=== PATIENT | male | born 1950 | race Caucasian/White ===

== ENCOUNTER 2017-09-22 12:08 | Inpatient (IN) | payer MEDICARE ==
[~2017-09-22] VITALS: Ht 172.7 cm; Wt 96.2 kg
--- NOTE | ~2017-09-22 | PR ---
[place], [place] PROGRESS NOTE [id number] UNIT #: [id number] ROOM: 508 DOCTOR: JACKY JUAREZ MD,RONAK BIRTHDATE: [birth year] DOS: 09/24/2017 SUBJECTIVE: The patient was noted comfortable at this time with reduction of symptoms of shortness of breath and cough was noted. Denies symptoms of chest pain or abdominal pain. Denies symptoms of nausea, vomiting, or diarrhea. The patient was noted mostly in his room and ambulating in his room with the oxygen. OBJECTIVE: VITAL SIGNS: For the patient which has been recorded shows a normal temperature, respiratory rate 20, heart rate 84, blood pressure 152/80. The pulse oxygen saturation of the patient noted as 94% saturation on 4-6 L nasal cannula. HEENT: Moderate obesity. NECK: Supple. CARDIOVASCULAR: S1, S2 audible. LUNGS: The patient was noted without any crackles. Moderate decreased breath sounds with expiratory wheezing decreased from previous examinations. ABDOMEN: Soft and nontender. EXTREMITIES: Without any edema. LABORATORY DATA: The patient's chest x-ray shows changes of COPD without any acute pulmonary infiltration. Arterial blood gas on 4.5 liter nasal cannula. PO2 was noted only 66. IMPRESSION: Acute severe hypoxic respiratory failure result of acute exacerbation of chronic obstructive pulmonary disease and acute bronchitis. PLAN OF MANAGEMENT: Ambulation with the oxygen. Continue current dose of steroids. Monitor the patient in the next 24 hours prior to consideration of possible. Discharge home depends on further improvement. RONAK RICO MD CM:PNTRANS [id number] RONAK JUAREZ MD 09/24/171945 interface
--- NOTE | ~2017-09-22 | CON ---
[place], [place] REPORT OF CONSULTATION NAME: EKATERINA CURRIE UNIT #: [id number] ROOM: 508 DOCTOR: STRA ARREDONDO DO BIRTHDATE: [birth year] DOS: 09/23/2017 CHIEF COMPLAINT: Shortness of breath, cough, fever. HISTORY OF PRESENT ILLNESS: This is a 67-year-old male who came to the ED from the PCP's office with a complaint of shortness of breath, productive cough, wheezing and fever that had begun 4 days prior. 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 Patient reports that he first noticed the symptoms afternoon around 2:00; he said he started feeling under the weather; by 5:00, he was severely short of breath with cough and fever and these symptoms have persisted over the weekend. Patient is a smoker, smokes 1 pack per day. Patient was admitted overnight and reports that he feels a mild improvement of his respiratory symptoms since admission. No new complaints were brought up at this time. PAST MEDICAL HISTORY: COPD, coronary artery disease with history of CABG x 3, Crohn's disease, hyperlipidemia, hypertension. PAST SURGICAL HISTORY: CABG, cholecystectomy, left rotator cuff repair. SOCIAL HISTORY: Tobacco abuse. Denies alcohol or illicit drug use. FAMILY HISTORY: Father at age 51 of CHF. Mother had breast cancer, at age 62. ALLERGIES: PENICILLINS AND IODINE. HOME MEDICATIONS: Aspirin, atorvastatin, Lopressor, and valsartan/hydrochlorothiazide combination pill. REVIEW OF SYSTEMS: GENERAL APPEARANCE: Patient reports fever and chills. Denies weight loss, weight gain. HEENT: Patient denies vision change, diplopia, nasal discharge or dysphagia. CARDIOVASCULAR: Denies chest pain, palpitations, edema. RESPIRATORY: Patient complains of shortness of breath, cough with sputum production and wheezing. Patient denies any hemoptysis. ABDOMEN: Patient denies abdominal pain, nausea, vomiting, diarrhea, constipation. EXTREMITIES: Patient denies erythema, edema. NEUROLOGIC: Patient denies headaches and lightheadedness. SKIN: Patient denies new rashes, new lesions. VITAL SIGNS: Temperature 98.0, pulse is 86, respirations 18, blood pressure 146/75, pulse ox is 90% on 4 liters nasal cannula. LABORATORY DATA: White count 8.3, hemoglobin 14.9, hematocrit 48.1, platelet count 177. Chemistries: Sodium 139, potassium 3.2, chloride 104, carbon dioxide 26, BUN 23, creatinine 1.4, glucose 266. A1c 7.5. Calcium 8.4, phosphorus 2.4, magnesium 1.9. Liver enzymes normal. Albumin 3.4. Vitamin D [place], [place] REPORT OF CONSULTATION NAME: EKATERINA CURRIE UNIT #: [id number] ROOM: 508 DOCTOR: STAR ARREDONDO DO BIRTHDATE: [birth year] 8.2, vitamin B12 758 and folate 5.92. TSH 0.275. Blood cultures remain negative. Flu swab was negative. Chest x-ray on the showed clear lungs. PHYSICAL EXAMINATION: GENERAL APPEARANCE: Patient is awake, alert and oriented x 3, in mild respiratory distress. HEENT: Eyes are clear, no injection. Nares are patent. Mucous membranes are moist. NECK: Supple, nontender. CARDIOVASCULAR: Regular rate and rhythm with no murmurs, gallops or rubs. PULMONARY: Expiratory wheezes and diffuse rhonchi in all lung freeman. No rales appreciated. ABDOMEN: Soft, nontender with positive bowel sounds. EXTREMITIES: Upper extremities and lower extremities are clear of edema, erythema, clubbing, or cyanosis. NEUROLOGIC: Negative for focal deficits. IMPRESSION: 1. Acute on chronic obstructive pulmonary disease exacerbation with hypoxia. 2. Acute bronchitis. 3. Tobacco abuse. 4. Diabetes type 2, new diagnosis. 5. Obesity. 6. Coronary artery disease with history of bypass. TREATMENT PLAN: Continue with LevaqAndriy peraza, Solu-Medrol; the steroid dose will be reduced from 80 b.i.d. to 40 b.i.d. Patient feels better and we will continue to follow with his current respiratory therapy plan. If patient continues to improve clinically, we will anticipate discharge in the next 24-48 hours. Patient is medically stable at this time. We will continue to follow. STAR ARREDONDO DO RONAK RICO MD CM:CONSTR:REPORT OF CONSULTATION 1259 09/23/17 2342 interface
--- NOTE | ~2017-09-22 | CON ---
[place], [place] REPORT OF CONSULTATION NAME: EKATERINA CURRIE UNIT #: [id number] ROOM: 508 DOCTOR: JACKY JUAREZ MDRONAK BIRTHDATE: [birth year] DOS: 09/23/2017 ADDENDUM PULMONARY CONSULTATION EVALUATION AND MANAGEMENT The patient was independently seen and examined with [id number] encounter, history was confirmed. Physical examination performed. All the labs were reviewed. Note done by the medical accounting clerk was approved as well in the beginning of consultation after the date of service add on. CONSULTATION REQUESTED BY: Hospitalist Service. REASON FOR CONSULTATION: To assess the patient for the assessment of acute exacerbation of COPD. HISTORY OF PRESENT ILLNESS: This is a 67-year-old white male patient who stated gotten acutely ill in the last few days. The symptoms started for this patient with acute coughing, which were noted progressive chest congestion and worsening. The symptoms were later associated with significant shortness of breath as well as wheezing. The patient denies symptoms of chest pain. He denies symptoms of hemoptysis. The patient has been admitted under the Hospitalist Service on 09/22/2017 for further medical management. He denies any symptoms of hemoptysis. The patient's symptoms have been noted partially decreased. The patient was assessed in the Emergency Room was also noted with acute hypoxic respiratory failure with pulse ox saturation 88%. The patient was also noted elevation in temperature 101 degrees Fahrenheit. The patient's assessment was completed by the medical accounting clerk. PAST MEDICAL HISTORY: 1. COPD. 2. Acute Crohn's disease. 3. Mixed hyperlipidemia. 4. Essential hypertension. PAST SURGICAL HISTORY: 1. Coronary artery bypass graft. 2. Cholecystectomy. 3. Repair of the left rotator cuff. SOCIAL HISTORY: The patient is an active smoker, started as a teenager, smoke 1 pack of cigarettes a day. and has 4 children. FAMILY HISTORY: Father , at the age of 5151 years old, complication of congestive heart failure. Mother at 62 years old due to complication of breast cancer. HOME MEDICATIONS: Noted as use of aspirin, Lipitor, metoprolol tartrate, valsartan with hydrochlorothiazide. [place], [place] REPORT OF CONSULTATION NAME: EKATERINA CURRIE UNIT #: [id number] ROOM: 508 DOCTOR: JACKY JUAREZ MD,RONAK BIRTHDATE: [birth year] DRUG ALLERGIES: REPORTED ALLERGY TO THE PENICILLINS AND IODINE. PHYSICAL EXAMINATION: GENERAL: A 67-year-old white male who has been currently admitted to the hospital noted awake and alert. VITAL SIGNS: Height of 5 feet 8 inches, weight of 212 pounds, BMI 32.2. Audible wheezing were noted with coughing, nonproductive. HEENT: Head was atraumatic. Eyes nonicterus. NECK: Supple. CARDIOVASCULAR: S1, S2 audible. LUNGS: The patient was noted with moderate decreased breath sounds in the lungs bilaterally with diffuse expiratory wheezing. There were no crackles. ABDOMEN: Soft, nontender, positive bowel sounds. EXTREMITIES: The patient was noted without any edema, clubbing, or cyanosis. SKIN: Visible skin, no lesions, rash. MUSCULOSKELETAL: Without any acute deformities. CENTRAL NERVOUS SYSTEM: Cranial nerves 2-12 intact. No focal deficit. LABORATORY DATA: The CMP on admission that was done yesterday, glucose 123, normal BUN and creatinine and other electrolytes. CBC of the patient done on 09/22/2017 was noted as normal CBC. CBC done on 09/23/2017 for the patient noted as normal CBC. CMP of the patient done on 09/23/2017 creatinine 1.4, potassium 3.2. Influenza A and B, nasal washing antigen this morning were noted negative. Arterial blood gas of 4.5 liter nasal cannula was noted, pH of 7.39, pCO2 of 35, PO of 66. The chest x-ray 2-view, which was done in the Emergency Room personally reviewed, shows increased interstitial marking noted in the lungs bilaterally mid portion with changes of COPD. There was no cross pulmonary infiltration was noted. There was no finding of congestive heart failure post coronary artery bypass grafting, changes were still seen. IMPRESSION: 1. The patient was being currently noted with severe acute hypoxic respiratory failure result of acute exacerbation of chronic obstructive pulmonary disease, increased interstitial marking. The patient possibility to be with pulmonary venous congestion superimposed interstitial pneumonia would be considered. 2. The patient with history of chronic active nicotine abuse as well. 3. History of coronary artery disease. The patient with other comorbid conditions. 4. Acute kidney injury. The patient noted to have elevation of creatinine since admission with mild hyperkalemia. PLAN OF MANAGEMENT: The patient will be continued dose of corticosteroids 40 mg b.i.d. Bronchodilator will be continued for the patient every 4 hours. Collect the sputum for Gram stain and culture. Assess the patient for the urine for legionella antigen and strep pneumo antigen. Respiratory viral panel for the patient should be done as well. Additional treatment changes will be done based on the progression of the illness. Repeat chest x-ray in the morning to be assessed for this patient. Progression of those interstitial infiltration. All other supportive therapy, plan of management and care as well. Further additional treatment changes will be done for the patient based on the [place], [place] REPORT OF CONSULTATION NAME: EKATERINA CURRIE UNIT #: [id number] ROOM: 508 DOCTOR: JACKY JUAREZ MD,RONAK BIRTHDATE: [birth year] progression of the illness. Titrate oxygen to maintain a saturation of oxygen 92% or greater. At this time, if the patient's coughing remains persistent, certainly consider fiberoptic bronchoscopy at that time. Modification of the treatment for the patient will be done based on the progression of the illness. Usual care, other supportive therapy, plan of management. Nicotine replacement patch to overcome the nicotine withdrawal as well for the patient has been noted with active tobacco use 1 pack of cigarettes per day. Upon admission in the hospital he will require some long-term medications for the medical management of COPD as well that has not been used by the patient on a regular basis at home. At this time, the patient will be started on Symbicort HFA inhaler 2 puffs b.i.d. Thanks for allowing me to participate in the care of this patient. RONAK RICO MD CM:CONSTR:REPORT OF CONSULTATION 1444 09/24/17 0351 interface
--- NOTE | ~2017-09-22 | PR ---
[place], [place] PROGRESS NOTE NAME: EKATERINA CURRIE UNIT #: [id number] ROOM: 508 DOCTOR: JACKY JUAREZ MD,RONAK BIRTHDATE: [birth year] DOS: 09/25/2017 SUBJECTIVE: The patient noted comfortable at this time without any acute distress. The shortness of breath, cough and wheezing has been gradually improving. The patient did ambulate with the use of the oxygen. He was also assessed for home oxygen at this time required 4 liters of oxygen supplementation. The patient denies symptoms of chest pain or hemoptysis. OBJECTIVE: VITAL SIGNS: Normal temperature, respiratory rate 20, heart rate 84, blood pressure 165/96. Pulse oxygen saturation on 4 liters and 93% saturation. HEAD, EARS, EYES, NOSE AND THROAT: Examination shows no acute change. NECK: Supple. CARDIOVASCULAR: S1, S2 audible. LUNGS: The patient was noted without any crackles. Mild expiratory wheezing noted with [id number] decreased breath sounds bilaterally. ABDOMEN: Soft, nontender. IMPRESSION: The patient with resolving acute severe hypoxic respiratory failure, acute exacerbation of chronic obstructive pulmonary disease, and others gradually. PLAN OF TREATMENT: Tapering dose of prednisone, oral antibiotics. Use of oxygen supplementation, outpatient assessment was advised. RONAK RICO MD CM:PNTRANS [id number] RONAK JUAREZ MD 09/25/17 1752 interface
--- NOTE | ~2017-09-22 | EKG ---
[place], [place] ELECTROCARDIOGRAM REPORT NAME: EKATERINA CURRIE UNIT #: [id number] ROOM: 508 DOCTOR: JACKY JUAREZ MD,RONAK BIRTHDATE: [birth year] DOS: 09/22/2017 Electrocardiogram done on 09/22/2017, at 12:31 p.m. Normal sinus rhythm noted. Heart rate 75 beats per minute. Left axis deviation was noted. There were no cardiac dysrhythmias. RONAK RICO MD CM:EKGRPT:ELECTROCARDIOGRAM REPORT 1423 1450 RONAK JUAREZ MD
[2017-09-22 12:09] VITALS: BP 177/102
[2017-09-22 12:56] LABS: HEMATOCRIT 45.5 % (42.0-52.0); HEMOGLOBIN 14.3 g/dl (14.0-18.0); MEAN CELL VOLUME 87.5 fl (80.0-94.0); MEAN CORPUSCULAR HGB 27.5 pg (27.0-31.0); MEAN CORPUSCULAR HGB CONC 31.4 g/dl (33.0-37.0); MEAN PLATELET VOLUME 10.7 fl (9.6-12.3); PLATELET COUNT AUTOMATED 140 10*3/uL (130-400); RED CELL DISTRI WIDTH 14.9 % (0-14.5); WHITE BLOOD COUNT 5.4 10*3/uL (4.8-10.8)
[2017-09-22 13:16] LABS: ALBUMIN 3.1 gm/dl (3.1-4.5); ALKALINE PHOSPHATASE 116 U/L (45-117); BUN 19 mg/dl (7-24); CHLORIDE 108 mmol/L (98-107); CREATININE 1.13 mg/dL (0.70-1.30); POTASSIUM 3.5 mmol/L (3.5-5.1); SGOT/AST 23 IU/L (3-35); SGPT/ALT 36 U/L (12-78); SODIUM 143 mmol/L (136-145); TOTAL PROTEIN 6.9 gm/dL (6.4-8.2)
[2017-09-22 13:18] LABS: TROPONIN I < 0.015 ng/ml (<0.045)
[2017-09-22 13:23] LABS: PLATELET SUFFICIENCY NORMAL (NORMAL); TOTAL CELLS COUNTED 100 #CELLS
[2017-09-22 14:12] VITALS: BP 169/98
[2017-09-22 15:27] VITALS: BP 182/95
[2017-09-22] MEDS ORDERED: Lopressor25 MG PO (15:50)
[2017-09-22] MEDS ORDERED: ASPIRIN CHEWABL81 MG PO (15:51)
[2017-09-22] MEDS ORDERED: ATORVASTATIN CA40 M1 PO (15:52)
[2017-09-22 16:25] VITALS: BP 178/90
[2017-09-22] MEDS ORDERED: VALSARTAN-HCTZ1 EAC1 PO (17:00)
[2017-09-22 20:00] VITALS: BP 170/100
[2017-09-23] VITALS: BP 162/84
[2017-09-23 06:52] LABS: BASO % 0.1 % (0.0-1.0); HEMATOCRIT 48.1 % (42.0-52.0); HEMOGLOBIN 14.9 g/dl (14.0-18.0); LYMPH % 11.8 % (27.0-41.0); MEAN CELL VOLUME 87.8 fl (80.0-94.0); MEAN CORPUSCULAR HGB 27.2 pg (27.0-31.0); MEAN PLATELET VOLUME 10.8 fl (9.6-12.3); MONO # 0.3 10*3/uL (0.1-1.0); MONO % 3.7 % (3.0-9.0); PLATELET COUNT AUTOMATED 177 10*3/uL (130-400); RED BLOOD COUNT 5.48 10*6/uL (4.50-5.90); RED CELL DISTRI WIDTH 14.8 % (0-14.5); WHITE BLOOD COUNT 8.3 10*3/uL (4.8-10.8)
[2017-09-23 07:18] LABS: ALBUMIN 3.4 gm/dl (3.1-4.5); BUN 23 mg/dl (7-24); CHLORIDE 104 mmol/L (98-107); HDL CHOLESTEROL 35 mg/dl (40-60); POTASSIUM 3.2 mmol/L (3.5-5.1); SGOT/AST 21 IU/L (3-35); SGPT/ALT 41 U/L (12-78); SODIUM 139 mmol/L (136-145)
[2017-09-23 07:26] LABS: ALKALINE PHOSPHATASE 117 U/L (45-117); CHOLESTEROL 95 mg/dL (<200); CREATININE 1.41 mg/dL (0.70-1.30); LDL CHOLESTEROL 39 mg/dL (9-159); PHOSPHOROUS 2.4 mg/dL (2.5-4.9); THYROID STIM HORMONE (HS) 0.375 uIU/ml (0.358-4.75); TOTAL PROTEIN 7.4 gm/dL (6.4-8.2); TRIGLYCERIDES 104 mg/dl (<150); VLDL CHOLESTEROL 21 mg/dL (6-40)
[2017-09-23 08:00] VITALS: BP 146/75
[2017-09-23 12:00] VITALS: BP 155/74
[2017-09-23 12:17] LABS: VITAMIN D, 25-HYDROXY 8.2 ng/mL (30-100)
[2017-09-23 14:29] LABS: ABG BASE EXCESS -2.3 mmol/L (-2.0-2.0); ABG HCO3 21.6 mmol/l (22-26); ABG O2 SATURATION 92.7 % (95-97); ARTERIAL BLOOD GAS PCO2 35.7 mmHg (35-45); ARTERIAL BLOOD GAS PH 7.396 (7.35-7.45); ARTERIAL BLOOD GAS PO2 66.3 mmHg (80-90)
[2017-09-23 16:00] VITALS: BP 130/60
[2017-09-23 20:00] VITALS: BP 150/78
[2017-09-24] VITALS: BP 162/80
[2017-09-24 08:00] VITALS: BP 152/80
[2017-09-24 14:10] LABS: MYCOPLASMA PNEUMONIAE IGG 313 U/mL (0-99); MYCOPLASMA PNEUMONIAE IGM <770 U/mL (0-769)
[2017-09-24 16:10] VITALS: BP 140/84
[2017-09-24 20:20] VITALS: BP 146/80
[2017-09-25] VITALS: BP 150/80
[2017-09-25 08:00] VITALS: BP 165/96
[2017-09-25 08:10] VITALS: BP 154/80
[2017-09-25] MEDS ORDERED: LEVAQUIN750 M1 PO (10:43)
[2017-09-25] MEDS ORDERED: PREDNISONE10 MG PO (10:43)
[2017-09-25] MEDS ORDERED: DULE1ARO INH (10:43)
[2017-09-25] MEDS ORDERED: NICODERM T (10:43)
[2017-09-25] MEDS ORDERED: HYDR12.5C PO (10:43)
[2017-09-25] MEDS ORDERED: MUCINEX ER600 MG PO (10:43)
[2017-09-26 01:04] LABS: ADENOVIRUS Negative (Negative); INFLUENZA A Negative (Negative); INFLUENZA B Negative (Negative); METAPNEUMOVIRUS Negative (Negative); PARAINFLUENZA 1 Negative (Negative); PARAINFLUENZA 2 Negative (Negative); PARAINFLUENZA 3 Negative (Negative); RHINOVIRUS Negative (Negative); RSV A Negative (Negative); RSV B Negative (Negative)
== END 2017-09-25 12:56 | disposition home or self-care (01) | DRG 682 ==
LOC: EDSTATUS 12:08 → ED 12:09 → EDHOLD 15:19 → 5E 15:19
PROVIDERS: Internal Medicine Critical Care Medicine; Nurse Practitioner Family; Registered Nurse
DX: N17.9 Acute kidney failure, unspecified (principal); J96.01 Acute respiratory failure with hypoxia; J44.0 Chronic obstructive pulmonary disease with (acute) lower respiratory infection; E87.5 Hyperkalemia; J44.1 Chronic obstructive pulmonary disease with (acute) exacerbation; K50.90 Crohn's disease, unspecified, without complications; I25.10 Atherosclerotic heart disease of native coronary artery without angina pectoris; J20.9 Acute bronchitis, unspecified; F17.210 Nicotine dependence, cigarettes, uncomplicated; E78.2 Mixed hyperlipidemia; E66.9 Obesity, unspecified; I10 Essential (primary) hypertension; Z95.1 Presence of aortocoronary bypass graft; Z88.0 Allergy status to penicillin; Z88.8 Allergy status to other drugs, medicaments and biological substances; Z79.899 Other long term (current) drug therapy; Z79.82 Long term (current) use of aspirin; Z90.49 Acquired absence of other specified parts of digestive tract; Z82.49 Family history of ischemic heart disease and other diseases of the circulatory system; Z71.6 Tobacco abuse counseling; Z68.32 Body mass index [BMI] 32.0-32.9, adult